=== PATIENT | male | born 2000 | race African-American/Black ===

== ENCOUNTER 2022-10-31 07:37 | Emergency (ER) | payer OTHER ==
[2022-10-31] MEDS ORDERED: Boostrix 0.5 ML (Tdap) VIAL (>/=7 yrs of age) ONE (07:53)
[2022-10-31] MEDS ORDERED: Proparacaine 0.5% Opth 15 ML BOT ONE (07:53)
[2022-10-31] MEDS ORDERED: Fluorescein Opthalmic Strip ONE (07:53)
[2022-10-31] MEDS ORDERED: Erythromycin Base 0.5% Oint 1 GM TUBE ONE (08:19)
[2022-10-31] MEDS ORDERED: Iopamidol 300 61% 100 ML VIAL FS ONE (09:18)
[2022-10-31] MEDS ORDERED: Ketorolac Tromethamine 30 MG/ML VIAL ONE (09:21)
[2022-10-31] MEDS ORDERED: Bacitracin 1 PK ONE (09:22)
== END 2022-10-31 09:33 | disposition home or self-care (01) ==
LOC: CSHERS 07:37
DX: S23.3XXA Sprain of ligaments of thoracic spine, initial encounter (principal); S00.83XA Contusion of other part of head, initial encounter; V89.2XXA Person injured in unspecified motor-vehicle accident, traffic, initial encounter
CPT/HCPCS: 70450; 71260; 72125; 74177; 90471; 90715; 96374; J1885; Q9967